=== PATIENT | male | born 1930 | race African-American/Black ===

== ENCOUNTER 2017-02-23 18:32 | Inpatient (IN) | payer OTHER ==
--- NOTE | 2017-02-23 18:54 | PDOC ---
History of Present Illness - General Chief Complaint: CVA/TIA Stated Complaint: RULE OUT STROKE Time Seen by Provider: 02/23/17 18:53 - History of Present Illness Initial Comments: 02/23/17 19:29 Mr. Aguilera is an 86 yo male with a significant past medical history of prior stroke and atherosclerosis who presents to the emergency department following an episode of slurred speech and non-responsiveness at approximately 6pm tonight. Upon arriving to the ER by ambulance he had regained his normal speech patterns and was fully conversant. The patient denies chest pain, shortness of breath, headache and dizziness. Denies fever, chills, nausea, vomit, diarrhea and constipation. Denies dysuria, frequency, urgency and hematuria. Allergies: NKDA Past surgical history: Denies tPA Exclusion Checklist 0-3hr - Time Elapsed Date last known well: 02/23/17 Time last known well: 18:00 Elaspsed time: 1 Day(s) and 2 Hour(s) and 3 Minutes - Thrombolytic Therapy Candidate Is the patient eligible for Thrombolytic Therapy?: No - Exclusion Criteria 0-3hr SBP greater than 185 or DBP greater than 110mmHg despite tx: No Recent IC/spinal surgery,head trauma or stroke w/in last 3mo: No Hx of previous IC hemorrhage, IC neoplasm, AVM or aneurysm: No Active internal bleeding: No Blding diathesis(low plt ct, inc PTT,INR>1.7 or use of NOAC): No Symptoms suggest subarachnoid hemorrhage: No CT demonstrates multilobar infarct(>1/3 cerebral hemiphere): No Arterial puncture at noncompressible site in previous 7 days: No Blood glucose concentration less than 50mg/dL (2.7mmol/L): No - Relative Exclusion Criteria 0-3h Life expectancy <1yr/severe co-morbid illness/FIRST FRONT VENTILATOR on admit: No : No Patient/family refused: No Rapid improvement: Yes Stroke severity too mild: No Recent acute [place] (w/in previous 3 months): No Seizure at onset with postictal residual neuro impairments: No Major surgery or serious trauma w/in previous 14 days: No Recent GI or hemorrhage (w/in previous 21 days): No - Ineligibility reason(s) Reasons No tPA given: See reason(s) noted above NIH Stroke Scale - Initial Evaluation Level of consciousness: Alert Ask patient the month and their age: Answers both correctly Ask patient to open & close eyes; make fist and let go: Obeys both correctly Best gaze (horizontal eye movement): Normal Visual field testing: No visual field loss Facial paresis (Show teeth/raise eyebrows/close eyes tight): Normal symmetrical movement Motor Function: Left Arm: Normal Motor Function: Right Arm: Normal (extends arm 90 (or 45) degrees for 10 seconds without drift Motor Function: Left Leg: Normal (extends leg 30 degrees for 5 seconds without drift) Motor Function: Right Leg: Normal (extends leg 30 degrees for 5 seconds without drift) Limb Ataxia: No ataxia Sensory(Use pinprick test arms,legs,trunk,face/side to side): Normal Best language (Describe picture, name items, read sentences): No Aphasia Dysarthria (read several words): Mild to moderate slurring of words (Baseline after last stroke) Extinction and Inattention: No abnormality - Total Score NIH Stroke Scale Score: 1 Past History - Past Medical History Allergies/Adverse Reactions: Allergies Allergy/AdvReac Type Severity Reaction Status Date / Time No Known Allergies Allergy Verified 02/24/17 00:51 Home Medications: Ambulatory Orders Amlodipine Besylate [Norvasc -] 10 mg PO DAILY 02/24/17 Aspirin [Aspirin EC] 81 mg PO DAILY 02/24/17 Atorvastatin Ca [Lipitor] 40 mg PO HS 02/24/17 Metoprolol Tartrate [Lopressor -] 25 mg PO BID 02/24/17 Review of Systems - Review of Systems Comments:: 02/23/17 19:29 GENERAL/CONSTITUTIONAL: No fever or chills. No weakness. HEAD, EYES, EARS, NOSE AND THROAT: No change in vision. No ear pain or discharge. No sore throat. CARDIOVASCULAR: No chest pain or shortness of breath RESPIRATORY: No cough, wheezing, or hemoptysis. GASTROINTESTINAL: No nausea, vomiting, diarrhea or constipation. GENITOURINARY: No dysuria, frequency, or change in urination. MUSCULOSKELETAL: No joint or muscle swelling or pain. No neck or back pain. SKIN: No rash NEUROLOGIC: As reported in HPI. No other neurologic complaints. ENDOCRINE: No increased thirst. No abnormal weight change HEMATOLOGIC/LYMPHATIC: No anemia, easy bleeding, or history of blood clots. ALLERGIC/IMMUNOLOGIC: No hives or skin allergy. *Physical Exam - Physical Exam Comments: 02/23/17 19:30 GENERAL: Awake, alert, and fully oriented, in no acute distress HEAD: No signs of trauma, normocephalic, atraumatic EYES: PERRLA, EOMI, sclera anicteric, conjunctiva clear ENT: Auricles normal inspection, hearing grossly normal, nares patent, oropharynx clear without exudates. Moist mucosa NECK: Normal ROM, supple, no lymphadenopathy, JVD, or masses LUNGS: No distress, speaks full sentences, clear to auscultation bilaterally HEART: Regular rate and rhythm, normal S1 and S2, no murmurs, rubs or gallops, peripheral pulses normal and equal bilaterally. ABDOMEN: Soft, nontender, normoactive bowel sounds. No guarding, no rebound. No masses EXTREMITIES: Normal inspection, Normal range of motion, no edema. No clubbing or cyanosis. NEUROLOGICAL: +Minor slurring of speech, reported as patient normal post prior stroke per family. Cranial nerves II through XII grossly intact. Normal gait, no focal sensorimotor deficits SKIN: Warm, Dry, normal turgor, no rashes or lesions noted. ED Treatment Course - LABORATORY CBC & Chemistry Diagram: 02/23/17 21:58 02/23/17 21:58 Medical Decision Making - Medical Decision Making 02/23/17 23:20 Patient at baseline by the time he presented via EMS. CT read as subacute process observed, no acute bleed. TPA not given as patient rapidly improved after episode. Patient will be admitted for observation and neurology will be consulted for evaluation. *DC/Admit/Observation/Transfer Diagnosis at time of Disposition: TIA (transient ischemic attack) Qualifiers: Transient cerebral ischemia type: unspecified Qualified Code(s): G45.9 - Transient cerebral ischemic attack, unspecified - Discharge Dispostion Admit: Yes
--- NOTE | 2017-02-23 19:51 | PDOC ---
Attending Attestation - HPI HPI: 02/23/17 20:11 86 yr old male, pmhx of a CVA (4yrs ago), who presents to the emergency room complaining of slurred speech and unresponsiveness that began at 6:00pm. The patients family called an ambulance, however, upon arrival to the emergency room the patient returned to his usual self as per family. The patient does not have any complaints at this time. Family notes that the patient had a carotid US on 02/21/[address] Jameson and found that he had an arterial blockage. Denies chest pain, SOB. Denies fever, chills, nausea, vomiting. Allergies: NKDA PCP: Dr. Godoy <Renay Mcduffie - Last Filed: 02/23/17 20:13> - Resident Resident Name: Sigifredo Garcia - ED Attending Attestation I have performed the following: I have examined & evaluated the patient, The case was reviewed & discussed with the resident, I agree w/resident's findings & plan, Exceptions are as noted - HPI HPI: 02/23/17 19:51 - Physicial Exam PE: 02/23/17 20:00 *Physical Exam General Appearance: Yes: Appropriately Dressed. No: Apparent Distress, Intoxicated HEENT: positive: EOMI, JOEY, Normal ENT Inspection, Normal Voice, TMs Normal, Pharynx Normal. negative: Pale Conjunctivae, Photophobia, Scleral Icterus (R), Scleral Icterus (L) Neck: positive: Trachea midline, Normal Thyroid, Supple. negative: Tender, Rigid, Carotid bruit, Stridor, Lymphadenopathy (R), Lymphadenopathy (L), Thyromegaly Respiratory/Chest: positive: Lungs Clear, Normal Breath Sounds. negative: Chest Tender, Respiratory Distress, Accessory Muscle Use, Labored Respiration, RES, Crackles, Rales, Rhonchi, Stridor, Wheezing, Dullness Cardiovascular: positive: Regular Rhythm, Regular Rate, S1, S2. negative: Edema , JVD, Murmur, Bradycardia, Tachycardia Vascular Pulses: Dorsalis-Pedis (R): 2+, Doralis-Pedis (L): 2+ Gastrointestinal/Abdominal: positive: Normal Bowel Sounds, Flat, Soft. negative : Tender, Organomegaly, Pulsatile Mass, Increased Bowel Sounds, Decreased BS, Distended, Guarding, Rebound, Hernia, Hepatomegaly, Spleenomegaly Lymphatic: negative: Adenopathy, Tenderness Musculoskeletal: positive: Normal Inspection. negative: CVA Tenderness, Decreased Range of Motion Extremity: positive: Normal Capillary Refill, Normal Inspection, Normal Range of Motion, Pelvis Stable. negative: Tender, Pedal Edema, Swelling, Erythema Integumentary: positive: Normal Color, Dry, Warm. negative: Cyanotic, Erythema , Jaundice, Rash Neurologic: positive: scrap metal collector II-XII NML intact, Fully Oriented, Alert, Normal Mood/ Affect, Motor Strength 5/5. negative: EOM Palsy, Facial Droop, Sensory Deficit 02/23/17 20:01 - Medical Decision Making 02/24/17 19:15 Pt admitted for TIA. <Rainer Avery - Last Filed: 02/24/17 19:20>
[2017-02-23] MEDS ORDERED: SODIUM CHLORIDE 1,000 ML IV STA (19:57)
[2017-02-23 22:28] LABS: BASOPHIL 0.5 % (0-2.0); EOSINOPHIL 1.4 % (0-4.5); MCH 29.9 pg (25.7-33.7); MEAN CELL VOLUME 90.4 fl (80-96); MEAN PLT VOLUME 9.2 fl (7.5-11.1); NEUTROPHILS 47.9 % (42.8-82.8); PLATELET COUNT 151 K/MM3 (134-434); RDW 14.9 % (11.9-15.9); WHITE BLOOD COUNT 4.4 K/mm3 (4.0-10.0)
[2017-02-23 22:49] LABS: INR 1.07 (0.82-1.09); PROTHROMBIN TIME (PATIENT) 12.1 SEC (9.98-11.88)
[2017-02-23 22:52] LABS: ALBUMIN 3.6 g/dl (3.4-5.0); ALK PHOS 82 U/L (45-117); ANION GAP 7 (8-16); BILIRUBIN,TOTAL 0.3 mg/dL (0.2-1.0); CALCIUM 8.5 mg/dL (8.5-10.1); CO2 27 mmol/L (21-32); CREATININE 0.7 mg/dL (0.7-1.3); GLUCOSE,RANDOM 103 mg/dL (74-106); SGOT/AST 14 U/L (15-37); SGPT/ALT 21 U/L (12-78)
[2017-02-24] MEDS ORDERED: ACETAMINOPHEN 325 MG TABLET (FP) PO PRN (00:30)
[2017-02-24] MEDS: METOPROLOL SUCCINATE 50 MG TAB.SR.24H (FP) PO SCH (10:19)
[2017-02-24] MEDS: ASPIRIN COATED 81 MG TABLET.EC PO SCH (10:19)
--- NOTE | 2017-02-24 11:38 | HP ---
Admitting History and Physical - Primary Care Physician PCP: Carolyn Godoy - Admission Chief Complaint: CVA History of Present Illness: Mr. Aguilera is an 86 yo male with a significant past medical history of prior stroke and atherosclerosis who presents to the emergency department following an episode of slurred speech and non-responsiveness at approximately 6pm tonight. Upon arriving to the ER by ambulance he had regained his normal speech patterns and was fully conversant. The patient denies chest pain, shortness of breath, headache and dizziness. Denies fever, chills, nausea, vomit, diarrhea and constipation. Denies dysuria, frequency, urgency and hematuria. History Source: Patient, Medical Record Limitations to Obtaining History: Dementia, Poor Historian - Past Medical History COUNSELING SERVICES DIRECTOR: Yes: CVA - Smoking History Smoking history: Never smoked Have you smoked in the past 12 months: No - Alcohol/Substance Use Hx Alcohol Use: No Home Medications - Allergies Allergies/Adverse Reactions: Allergies Allergy/AdvReac Type Severity Reaction Status Date / Time No Known Allergies Allergy Verified 02/24/17 00:51 - Home Medications Home Medications: Ambulatory Orders Amlodipine Besylate [Norvasc -] 10 mg PO DAILY 02/24/17 Aspirin [Aspirin EC] 81 mg PO DAILY 02/24/17 Atorvastatin Ca [Lipitor] 40 mg PO HS 02/24/17 Metoprolol Tartrate [Lopressor -] 25 mg PO BID 02/24/17 Review of Systems - Review of Systems Constitutional: reports: No Symptoms Eyes: reports: No Symptoms HENT: reports: No Symptoms Neck: reports: No Symptoms Cardiovascular: reports: No Symptoms Respiratory: reports: No Symptoms Gastrointestinal: reports: No Symptoms Genitourinary: reports: No Symptoms Musculoskeletal: reports: No Symptoms Integumentary: reports: No Symptoms Neurological: reports: No Symptoms Endocrine: reports: No Symptoms Hematology/Lymphatic: reports: No Symptoms Psychiatric: reports: No Symptoms Physical Examination Vital Signs: Vital Signs Temperature 97.5 F L 02/24/17 10:00 Pulse Rate 54 L 02/24/17 10:00 Respiratory Rate 02/24/17 10:00 Blood Pressure 161/67 02/24/17 10:00 O2 Sat by Pulse Oximetry (%) 98 02/24/17 06:31 Constitutional: Yes: Mild Distress Eyes: Yes: WNL HENT: Yes: WNL Neck: Yes: WNL Cardiovascular: Yes: WNL Respiratory: Yes: WNL Gastrointestinal: Yes: WNL Renal/: Yes: WNL Musculoskeletal: Yes: Muscle Weakness Extremities: Yes: WNL Edema: Yes Edema: LLE: 1+, RLE: 1+ Peripheral Pulses WNL: Yes Integumentary: Yes: WNL Wound/Incision: Yes: Clean/Dry Neurological: Yes: Pre-Existing Deficit, Unsteady Gait ...Motor Strength: LLE, RLE Psychiatric: Yes: WNL Imaging - Results Cat Scan: Report Reviewed Problem List - Problems (1) TIA (transient ischemic attack) Code(s): G45.9 - TRANSIENT CEREBRAL ISCHEMIC ATTACK, UNSPECIFIED Qualifiers: Transient cerebral ischemia type: unspecified Qualified Code(s): G45.9 - Transient cerebral ischemic attack, unspecified; G45.9 - Transient cerebral ischemic attack, unspecified; G45.9 - Transient cerebral ischemic attack, unspecified (2) CVA, old, cognitive deficits Code(s): I69.319 - UNSP SYMPTOMS AND SIGNS W COGN FNCTNS FOL CEREBRAL INFRC (3) Hypertension Code(s): I10 - ESSENTIAL (PRIMARY) HYPERTENSION (4) Lipidemia Code(s): E78.5 - HYPERLIPIDEMIA, UNSPECIFIED (5) Unsteady gait Code(s): R26.81 - UNSTEADINESS ON FEET Assessment/Plan OLD CVA LIPID PANEL CAROTID STENOSIS VASC SX EVAL NEURO EVAL OOB TO CHAIR BP CONTROL STATIN ASA
--- NOTE | 2017-02-24 11:55 | EKG ---
Test Reason : Blood Pressure : / mmHG Vent. Rate : 058 BPM Atrial Rate : 058 BPM P-R Int : 158 ms QRS Dur : 082 ms QT Int : 446 ms P-R-T Axes : 065 053 036 degrees QTc Int : 437 ms SINUS BRADYCARDIA WITH PREMATURE ATRIAL COMPLEXES WITH ABERRANT CONDUCTION MINIMAL VOLTAGE CRITERIA FOR LVH, MAY BE NORMAL VARIANT BORDERLINE ECG NO PREVIOUS ECGS AVAILABLE Confirmed by ELLI GARAY, MELLISA ([id number]) on 02/24/2017 11:54:31 AM Referred By: Confirmed By:MELLISA CALLOWAY MD
--- NOTE | 2017-02-24 14:38 | CON.CARD ---
Consult Consult Specialty:: Cardiology Referred by:: odilia Reason for Consultation:: cva - History of Present Illness Chief Complaint: slurred speech History of Present Illness: 86 year old male with a pmhx of htn and carotid atherosclerosis who presents with slurred speech. Patient was home when daughter noticed episode of slurred speech. Symptoms resolved shortly after. No chest pain, dyspnea, or palpitations. No pnd or orthopnea. No edema. No syncope. - History Source History Provided By: Patient, Medical Record - Past Medical History EXECUTIVE DIRECTOR CONTRACT SHOP: Yes: CVA - Alcohol/Substance Use Hx Alcohol Use: No - Smoking History Smoking history: Never smoked Have you smoked in the past 12 months: No Home Medications - Allergies Allergies/Adverse Reactions: Allergies Allergy/AdvReac Type Severity Reaction Status Date / Time No Known Allergies Allergy Verified 02/24/17 00:51 - Home Medications Home Medications: Ambulatory Orders Amlodipine Besylate [Norvasc -] 10 mg PO DAILY 02/24/17 Aspirin [Aspirin EC] 81 mg PO DAILY 02/24/17 Atorvastatin Ca [Lipitor] 40 mg PO HS 02/24/17 Metoprolol Tartrate [Lopressor -] 25 mg PO BID 02/24/17 Vital Signs: Vital Signs Temperature 97.5 F L 02/24/17 10:00 Pulse Rate 54 L 02/24/17 10:00 Respiratory Rate 17 02/24/17 10:00 Blood Pressure 161/67 02/24/17 10:00 O2 Sat by Pulse Oximetry (%) 98 02/24/17 08:29 Constitutional: Yes: No Distress Neck: Yes: Supple Respiratory: Yes: CTA Bilaterally Gastrointestinal: Yes: Normal Bowel Sounds, Soft Cardiovascular: Yes: Regular Rate and Rhythm JVD: No Carotid Bruit: Yes Heart Sounds: Yes: S1, S2 Murmur: No: Systolic Murmur Edema: No - Other Data Labs, Other Data: INR, PTT INR 1.07 (0.82-1.09) 02/23/17 21:58 Imaging - Results Chest X-ray: Report Reviewed X-ray: Report Reviewed Cat Scan: Report Reviewed EKG: Image Reviewed Problem List - Problems (1) CVA, old, cognitive deficits Code(s): I69.319 - UNSP SYMPTOMS AND SIGNS W COGN FNCTNS FOL CEREBRAL INFRC (2) Hypertension Code(s): I10 - ESSENTIAL (PRIMARY) HYPERTENSION Assessment/Plan 86 year old male with a pmhx of htn and carotid atherosclerosis who presents with slurred speech. EKG: sinus rhythm at 58bpm, pac, lvh, no acute st changes 1) CVA/TIA -CT head with subacute/acute infarct Vascular surgery to see given known severe carotid stenosis Aspirin/statin/bp control -admitted to tele Echocardiogram 2) HTN Restarted metoprolol Monitor bp and restart amlodipine if needed
[2017-02-24 15:25] VITALS: BMI 22.7
[2017-02-24] MEDS ORDERED: FLU VACCINE QUAD 60 MCG/0.5 ML (MDV 17-18) IM ONE (17:00)
--- NOTE | 2017-02-24 18:39 | CONSULT ---
Consult - Past Medical History INTELLIGENCE SPECIALIST: Yes: CVA - Alcohol/Substance Use Hx Alcohol Use: No - Smoking History Smoking history: Never smoked Have you smoked in the past 12 months: No Home Medications - Allergies Allergies/Adverse Reactions: Allergies Allergy/AdvReac Type Severity Reaction Status Date / Time No Known Allergies Allergy Verified 02/24/17 00:51 - Home Medications Home Medications: Ambulatory Orders Amlodipine Besylate [Norvasc -] 10 mg PO DAILY 02/24/17 Aspirin [Aspirin EC] 81 mg PO DAILY 02/24/17 Atorvastatin Ca [Lipitor] 40 mg PO HS 02/24/17 Metoprolol Tartrate [Lopressor -] 25 mg PO BID 02/24/17 Physical Exam Vital Signs: Vital Signs Temperature 98.2 F 02/24/17 13:45 Pulse Rate 59 L 02/24/17 13:45 Respiratory Rate 18 02/24/17 13:45 Blood Pressure 153/70 02/24/17 13:45 O2 Sat by Pulse Oximetry (%) 98 02/24/17 17:53 Assessment/Plan VAscular Surgery Mr. Aguilera is an 86 yo male with a significant past medical history of prior stroke and atherosclerosis who presents to the emergency department following an episode of slurred speech and non-responsiveness at approximately 6pm tonight. Upon arriving to the ER by ambulance he had regained his normal speech patterns and was fully conversant. The patient denies chest pain, shortness of breath, headache and dizziness. Denies fever, chills, nausea, vomit, diarrhea and constipation. Denies dysuria, frequency, urgency and hematuria. Allergies: NKDA Past surgical history: Denies 02/23/17 23:17 PE Head - NC/AT Lung - CTA Heart - RRR abd - soft,nt,nd ext - warm,pink. FROM x4 Good muscle strength No weaknesses. A/P CT shows old stroke from 4 years ago Recent CTA done shows string sign in the carotid on the right side. Pt will need cardiology workup and will need CEA vs carotid stent. The lesion is 1.5cm from the bulb. Might benefit from carotid stent due to location of stenosis. Will follow Tolu Jameson DO
[2017-02-24] MEDS: ATORVASTATIN CA 40 MG TABLET (FP) PO SCH ×2 (21:01→21:02)
--- NOTE | 2017-02-24 23:21 | CONSULT ---
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 Long h/o HTN, Cholesterol on amlodipine, atorvastatin, metoprolol and ASA. Said to be s/p CVA 4 years ago but was last seen by me as out patient on for stiffness in both legs and shuffling gait with signs of Parkinsonism. Followed by Dr. Jameson with known carotid disease recently defined on recent CTA (reviewed) revealing a critical Right and a moderate left ICA stenoses. Now admitted after a witnessed episode of speech arrest and decreased responsiveness which had normalized by arrival in the ED. CT of head (reviewed) shows moderate, diffuse, atrophy and a subacute-chronic Right frontal CVA. Patient cannot further describe the episode other than to confirm "I had a seizure." Denies prior episodes. ZUNILDA: No bruits. Cor: Reg NEURO: Awake, alert. Ox [facility], Feb, 2017, [place]. Recalls 2 of 3 at 3 mins. no frontal release findings. Fluent speech. Full felton. Full EOM's. no obvious facial. Tongue WANDA's are slowed but gag is normal. No drift or tremor. Decreased WANDA's B/L. Min Cogwheeling. Brisk reflexes. Downgoing toes. No FTN Dystaxia Normal sensation. Romberg neg. Gait: Stiff-legged. IMP: Mild B/L Motor signs Mild extrapyramidal features. 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 TIA, Vs focal seizure (possibly from the old stroke) Vs, Syncope SUGGEST: Determine from the family if LOC occurred since it creates an entirely different differential diagnosis. If LOC...Syncope vs seizure and patient needs telemetry, echo, orthostatics, EEG. If no LOC, TIA is much more likely (ie: focal cerebral ischemia should not cause LOC). MRI and MR Angio of the carotids (NB: Since a neurological event occurred, it is not hussein to assume the findings of the Sept CTA are still valid since the new event could involve the occlusion of the sub-critical R ICA stenosis making CEA or stenting now impossible). After endarectomy or stenting, antiplatelet Rx as per Dr. Jameson ( ie: would add clopidigrel to ASA). Neurology f/u as out patient. Thank you very much, Leroy Sheehan MD
[2017-02-25 07:27] LABS: MCH 29.8 pg (25.7-33.7); MCHC 32.8 g/dl (32.0-35.9); MEAN CELL VOLUME 90.7 fl (80-96); MEAN PLT VOLUME 9.4 fl (7.5-11.1); PLATELET COUNT 146 K/MM3 (134-434); RDW 14.8 % (11.9-15.9); WHITE BLOOD COUNT 3.7 K/mm3 (4.0-10.0)
[2017-02-25 08:02] LABS: ALBUMIN 3.3 g/dl (3.4-5.0); ALK PHOS 79 U/L (45-117); ANION GAP 8 (8-16); BILIRUBIN,TOTAL 0.4 mg/dL (0.2-1.0); CALCIUM 8.6 mg/dL (8.5-10.1); CHOLESTEROL 95 mg/dL (50-200); CO2 25 mmol/L (21-32); CREATININE 0.8 mg/dL (0.7-1.3); GLUCOSE,RANDOM 105 mg/dL (74-106); SGOT/AST 14 U/L (15-37); SGPT/ALT 19 U/L (12-78); TOT PROT 6.3 g/dl (6.4-8.2)
--- NOTE | 2017-02-25 08:54 | PN ---
Progress Note, Physician History of Present Illness: FEELS BETTER NO CP NO MOSHER - Current Medication List Current Medications: Active Medications Acetaminophen (Tylenol -) 650 mg PO Q6H PRN PRN Reason: FEVER OR PAIN Aspirin (Ecotrin -) 81 mg PO DAILY [facility] Last Admin: 02/24/17 10:19 Dose: 81 mg Atorvastatin Calcium (Lipitor -) 40 mg PO HS [facility] Last Admin: 02/24/17 21:02 Dose: 40 mg Metoprolol Succinate (Toprol Xl -) 50 mg PO DAILY [facility] Last Admin: 02/24/17 10:19 Dose: 50 mg - Objective Vital Signs: Vital Signs Temperature 98.1 F 02/25/17 05:21 Pulse Rate 54 L 02/25/17 05:21 Respiratory Rate 20 02/25/17 05:21 Blood Pressure 115/56 02/25/17 05:21 O2 Sat by Pulse Oximetry (%) 98 02/24/17 21:11 Cardiovascular: Yes: Regular Rate and Rhythm Respiratory: Yes: Regular, CTA Bilaterally Gastrointestinal: Yes: Normal Bowel Sounds, Soft. No: Tenderness Edema: No Labs: CBC, BMP 02/25/17 05:35 02/25/17 05:35 INR, PTT INR 1.07 (0.82-1.09) 02/23/17 21:58 Problem List - Problems (1) CVA, old, cognitive deficits Assessment/Plan: MRI RESULTS NOTED CONTINUE WITH MEDS Code(s): I69.319 - UNSP SYMPTOMS AND SIGNS W COGN FNCTNS FOL CEREBRAL INFRC (2) TIA (transient ischemic attack) Assessment/Plan: AWAIT MRA NEURO CONSULT NOTED Code(s): G45.9 - TRANSIENT CEREBRAL ISCHEMIC ATTACK, UNSPECIFIED Qualifiers: Transient cerebral ischemia type: unspecified Qualified Code(s): G45.9 - Transient cerebral ischemic attack, unspecified; G45.9 - Transient cerebral ischemic attack, unspecified; G45.9 - Transient cerebral ischemic attack, unspecified (3) Carotid stenosis Assessment/Plan: MRA MAY NEED SURGERY VS STENTING PREOP W/U--STRESS TEST Code(s): I65.29 - OCCLUSION AND STENOSIS OF UNSPECIFIED CAROTID ARTERY
[2017-02-25] MEDS: ASPIRIN COATED 81 MG TABLET.EC PO SCH ×2 (11:00→14:42)
[2017-02-25] MEDS: METOPROLOL SUCCINATE 50 MG TAB.SR.24H (FP) PO SCH ×2 (11:00→14:42)
--- NOTE | 2017-02-25 11:06 | PN ---
Progress Note, Physician Chief Complaint: No complaints S/p MRI History of Present Illness: 86 year old male with a pmhx of htn and carotid atherosclerosis who presents with slurred speech. Patient was home when daughter noticed episode of slurred speech. Symptoms resolved shortly after. No chest pain, dyspnea, or palpitations. No pnd or orthopnea. No edema. No syncope. - Current Medication List Current Medications: Active Medications Acetaminophen (Tylenol -) 650 mg PO Q6H PRN PRN Reason: FEVER OR PAIN Aspirin (Ecotrin -) 81 mg PO DAILY [facility] Last Admin: 02/24/17 10:19 Dose: 81 mg Atorvastatin Calcium (Lipitor -) 40 mg PO HS [facility] Last Admin: 02/24/17 21:02 Dose: 40 mg Metoprolol Succinate (Toprol Xl -) 50 mg PO DAILY [facility] Last Admin: 02/24/17 10:19 Dose: 50 mg - Objective Vital Signs: Vital Signs Temperature 98.1 F 02/25/17 05:21 Pulse Rate 54 L 02/25/17 05:21 Respiratory Rate 20 02/25/17 05:21 Blood Pressure 115/56 02/25/17 05:21 O2 Sat by Pulse Oximetry (%) 98 02/24/17 21:11 Constitutional: Yes: No Distress Cardiovascular: Yes: Regular Rate and Rhythm, S1, S2 Respiratory: Yes: CTA Bilaterally Gastrointestinal: Yes: Normal Bowel Sounds, Soft Edema: No Labs: CBC, BMP 02/25/17 05:35 02/25/17 05:35 INR, PTT INR 1.07 (0.82-1.09) 02/23/17 21:58 Problem List - Problems (1) CVA, old, cognitive deficits Code(s): I69.319 - UNSP SYMPTOMS AND SIGNS W COGN FNCTNS FOL CEREBRAL INFRC (2) Hypertension Code(s): I10 - ESSENTIAL (PRIMARY) HYPERTENSION Assessment/Plan 86 year old male with a pmhx of htn and carotid atherosclerosis who presents with slurred speech. EKG: sinus rhythm at 58bpm, pac, lvh, no acute st changes 1) CVA/TIA -MRI with old infarct Vascular surgery evaluated for carotid stenosis Aspirin/statin/bp control -If plan is for carotid endarterectomy than will need preop cardiac work up with Echocardiogram and Nuclear Stress Test. This can be done as inpatient or outpatient. 2) HTN On metoprolol Well controlled Please call me after results of cardiac work up.
[2017-02-25] MEDS ORDERED: DEXTROSE 5% IVPB ONE (12:00)
[2017-02-25] MEDS ORDERED: DIPYRIDAMOLE STRESS TEST IVPB ONE (12:00)
[2017-02-25] MEDS ORDERED: WATER IVPB ONE (12:00)
[2017-02-25] MEDS: ATORVASTATIN CA 40 MG TABLET (FP) PO SCH (21:11)
[2017-02-26] MEDS: ASPIRIN COATED 81 MG TABLET.EC PO SCH (09:43)
[2017-02-26] MEDS: METOPROLOL SUCCINATE 50 MG TAB.SR.24H (FP) PO SCH (09:43)
--- NOTE | 2017-02-26 13:13 | PN ---
Progress Note, Physician History of Present Illness: FEELS BETTER NO CP NO MOSHER - Current Medication List Current Medications: Active Medications Acetaminophen (Tylenol -) 650 mg PO Q6H PRN PRN Reason: FEVER OR PAIN Aspirin (Ecotrin -) 81 mg PO DAILY [facility] Last Admin: 02/26/17 09:43 Dose: 81 mg Atorvastatin Calcium (Lipitor -) 40 mg PO HS [facility] Last Admin: 02/25/17 21:11 Dose: 40 mg Metoprolol Succinate (Toprol Xl -) 50 mg PO DAILY [facility] Last Admin: 02/26/17 09:43 Dose: 50 mg - Objective Vital Signs: Vital Signs Temperature 97.7 F 02/26/17 05:00 Pulse Rate 57 L 02/26/17 05:00 Respiratory Rate 20 02/26/17 05:00 Blood Pressure 150/77 02/26/17 05:00 O2 Sat by Pulse Oximetry (%) 100 02/25/17 21:00 Cardiovascular: Yes: Regular Rate and Rhythm Respiratory: Yes: Regular, CTA Bilaterally Gastrointestinal: Yes: Normal Bowel Sounds, Soft Labs: CBC, BMP 02/25/17 05:35 02/25/17 05:35 INR, PTT INR 1.07 (0.82-1.09) 02/23/17 21:58 Problem List - Problems (1) CVA, old, cognitive deficits Assessment/Plan: MRI RESULTS NOTED---OLD CVA CONTINUE WITH MEDS Code(s): I69.319 - UNSP SYMPTOMS AND SIGNS W COGN FNCTNS FOL CEREBRAL INFRC (2) TIA (transient ischemic attack) Assessment/Plan: AWAIT MRA NEURO CONSULT NOTED Code(s): G45.9 - TRANSIENT CEREBRAL ISCHEMIC ATTACK, UNSPECIFIED Qualifiers: Transient cerebral ischemia type: unspecified Qualified Code(s): G45.9 - Transient cerebral ischemic attack, unspecified; G45.9 - Transient cerebral ischemic attack, unspecified; G45.9 - Transient cerebral ischemic attack, unspecified (3) Carotid stenosis Assessment/Plan: MRA MAY NEED SURGERY VS STENTING PREOP W/U--STRESS TEST NEGATIVE VASCULAR F/U Code(s): I65.29 - OCCLUSION AND STENOSIS OF UNSPECIFIED CAROTID ARTERY
--- NOTE | 2017-02-26 15:42 | PN ---
Progress Note (short form) - Note Progress Note: Vascular Surgery Pt's CTA and MRA reviewed. Right ICA on cta shows string sign 1cm from bifurcation. left ICA is prob 90% on images. Pt has old infarct on MRI. 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 Pt will need to be shunted for procedure. Can opt to send pt to tertiary care center. Will speak to medical team Tolu saenz DO
[2017-02-26] MEDS: ATORVASTATIN CA 40 MG TABLET (FP) PO SCH (21:25)
--- NOTE | 2017-02-27 09:29 | PN ---
Progress Note, Physician History of Present Illness: FEELS BETTER NO CP NO MOSHER - Current Medication List Current Medications: Active Medications Acetaminophen (Tylenol -) 650 mg PO Q6H PRN PRN Reason: FEVER OR PAIN Aspirin (Ecotrin -) 81 mg PO DAILY [facility] Last Admin: 02/26/17 09:43 Dose: 81 mg Atorvastatin Calcium (Lipitor -) 40 mg PO HS [facility] Last Admin: 02/26/17 21:25 Dose: 40 mg Metoprolol Succinate (Toprol Xl -) 50 mg PO DAILY [facility] Last Admin: 02/26/17 09:43 Dose: 50 mg - Objective Vital Signs: Vital Signs Temperature 97.9 F 02/27/17 06:00 Pulse Rate 63 02/27/17 06:00 Respiratory Rate 20 02/27/17 06:00 Blood Pressure 107/54 02/27/17 06:00 O2 Sat by Pulse Oximetry (%) 97 02/27/17 02:00 Neck: Yes: Supple Cardiovascular: Yes: Regular Rate and Rhythm Respiratory: Yes: Regular, CTA Bilaterally Labs: CBC, BMP 02/25/17 05:35 02/25/17 05:35 INR, PTT INR 1.07 (0.82-1.09) 02/23/17 21:58 Problem List - Problems (1) CVA, old, cognitive deficits Assessment/Plan: MRI RESULTS NOTED---OLD CVA CONTINUE WITH MEDS Code(s): I69.319 - UNSP SYMPTOMS AND SIGNS W COGN FNCTNS FOL CEREBRAL INFRC (2) TIA (transient ischemic attack) Assessment/Plan: AWAIT MRA NEURO CONSULT NOTED Code(s): G45.9 - TRANSIENT CEREBRAL ISCHEMIC ATTACK, UNSPECIFIED Qualifiers: Transient cerebral ischemia type: unspecified Qualified Code(s): G45.9 - Transient cerebral ischemic attack, unspecified; G45.9 - Transient cerebral ischemic attack, unspecified; G45.9 - Transient cerebral ischemic attack, unspecified (3) Carotid stenosis Assessment/Plan: MRA MAY NEED SURGERY VS STENTING PREOP W/U--STRESS TEST NEGATIVE VASCULAR F/U NOTED--TO DISCUSS Code(s): I65.29 - OCCLUSION AND STENOSIS OF UNSPECIFIED CAROTID ARTERY
[2017-02-27] MEDS: ASPIRIN COATED 81 MG TABLET.EC PO SCH (09:35)
[2017-02-27] MEDS: METOPROLOL SUCCINATE 50 MG TAB.SR.24H (FP) PO SCH (09:35)
[2017-02-27] MEDS: POLYETHYLENE GLYCOL 3350 119 GM BTL PO SCH (10:07)
[2017-02-27] MEDS: ATORVASTATIN CA 40 MG TABLET (FP) PO SCH (21:15)
[2017-02-28] MEDS: ASPIRIN COATED 81 MG TABLET.EC PO SCH (09:44)
[2017-02-28] MEDS: POLYETHYLENE GLYCOL 3350 119 GM BTL PO SCH (09:44)
[2017-02-28] MEDS: METOPROLOL SUCCINATE 50 MG TAB.SR.24H (FP) PO SCH (09:44)
--- NOTE | 2017-02-28 13:59 | PN ---
Progress Note, Physician Chief Complaint: no complaints History of Present Illness: 86 year old male with a pmhx of htn and carotid atherosclerosis who presents with slurred speech. Patient was home when daughter noticed episode of slurred speech. Symptoms resolved shortly after. No chest pain, dyspnea, or palpitations. No pnd or orthopnea. No edema. No syncope. Stress test normal by report. - Current Medication List Current Medications: Active Medications Acetaminophen (Tylenol -) 650 mg PO Q6H PRN PRN Reason: FEVER OR PAIN Aspirin (Ecotrin -) 81 mg PO DAILY [facility] Last Admin: 02/28/17 09:44 Dose: 81 mg Atorvastatin Calcium (Lipitor -) 40 mg PO HS [facility] Last Admin: 02/27/17 21:15 Dose: 40 mg Metoprolol Succinate (Toprol Xl -) 50 mg PO DAILY [facility] Last Admin: 02/28/17 09:44 Dose: 50 mg Polyethylene Glycol (Miralax (For Daily Use) -) 17 gm PO DAILY [facility] Last Admin: 02/28/17 09:44 Dose: 17 mg - Objective Vital Signs: Vital Signs Temperature 98.2 F 02/28/17 10:00 Pulse Rate 63 02/28/17 10:00 Respiratory Rate 18 02/28/17 10:00 Blood Pressure 131/69 02/28/17 10:00 O2 Sat by Pulse Oximetry (%) 96 02/28/17 10:00 Constitutional: Yes: Well Nourished, No Distress Eyes: Yes: Conjunctiva Clear, EOM Intact HENT: Yes: Atraumatic, Normocephalic Neck: Yes: Supple, Trachea Midline Cardiovascular: Yes: Regular Rate and Rhythm Respiratory: Yes: Regular, CTA Bilaterally Gastrointestinal: Yes: Normal Bowel Sounds, Soft Extremities: Yes: WNL Edema: No Peripheral Pulses WNL: No Peripheral Pulses: Left Radial: 4+, Right Radial: 4+, Left Doralis Pedis: 2+, Right Dorsalis Pedis: 2+, Left Femoral: 2+, Right Femoral: 2+ Labs: INR, PTT INR 1.07 (0.82-1.09) 02/23/17 21:58 Problem List - Problems (1) Carotid stenosis Assessment/Plan: He has severe carotid stenosis. plan is to transfer to [facility] Vascular Service Dr Doss to accept. Please provide MRI/A disc. cardiac status is stable for surgery. Code(s): I65.29 - OCCLUSION AND STENOSIS OF UNSPECIFIED CAROTID ARTERY Qualifiers: Laterality: bilateral Qualified Code(s): I65.23 - Occlusion and stenosis of bilateral carotid arteries; I65.23 - Occlusion and stenosis of bilateral carotid arteries; I65.23 - Occlusion and stenosis of bilateral carotid arteries
--- NOTE | 2017-02-28 15:18 | PN ---
Progress Note (short form) - Note Progress Note: VAscular Surgery Pt to be transfered to vascular surgery service at [facility]. Will be available to speak to surgeon if necessary. Tolu Jameson DO
--- NOTE | 2017-02-28 16:47 | DS ---
Physical Examination Vital Signs: Vital Signs Temperature 98.1 F 02/28/17 14:00 Pulse Rate 61 02/28/17 14:00 Respiratory Rate 18 02/28/17 14:00 Blood Pressure 143/68 02/28/17 14:00 O2 Sat by Pulse Oximetry (%) 96 02/28/17 10:00 Constitutional: Yes: Mild Distress Eyes: Yes: WNL HENT: Yes: WNL Neck: Yes: WNL Cardiovascular: Yes: WNL Respiratory: Yes: WNL Gastrointestinal: Yes: WNL Musculoskeletal: Yes: WNL Extremities: Yes: WNL Edema: No Peripheral Pulses WNL: Yes Integumentary: Yes: WNL Wound/Incision: Yes: Clean/Dry Neurological: Yes: Pre-Existing Deficit, Unsteady Gait ...Motor Strength: LLE, RLE Psychiatric: Yes: Other (DEMENTIA) Discharge Summary Reason For Visit: TCI Current Active Problems CVA, old, cognitive deficits (Acute) Carotid stenosis (Acute) Hypertension (Acute) Lipidemia (Acute) TIA (transient ischemic attack) (Acute) Unsteady gait (Acute) DEMENTIA Procedures: Principal: MRI/MRA Hospital Course: SEVERE CAROTID STENOSIS NEEDING TRANSFER TO [facility] FOR POSSIBLE HIGH RISK SURGERY Condition: Guarded - Instructions Diet, Activity, Other Instructions: LOW FAT/LOW SALT Referrals: Carolyn Godoy MD [Primary Care Provider] - Disposition: TRANSFER ACUTE CARE/OTHER HOSP - Home Medications Comprehensive Discharge Medication List: Ambulatory Orders Amlodipine Besylate [Norvasc -] 10 mg PO DAILY 02/24/17 Aspirin [Aspirin EC] 81 mg PO DAILY 02/24/17 Atorvastatin Ca [Lipitor] 40 mg PO HS 02/24/17 Metoprolol Tartrate [Lopressor -] 25 mg PO BID 02/24/17 Acetaminophen [Tylenol .Regular Strength -] 650 mg PO Q6H PRN #0 tablet Aspirin Coated [Ecotrin -] 81 mg PO DAILY tab 02/28/17 Atorvastatin Ca [Lipitor] 40 mg PO HS tablet 02/28/17 Metoprolol Succinate [Toprol XL -] 50 mg PO DAILY tab 02/28/17 Polyethylene Glycol 3350 [Miralax 119 gm Btl -] 17 gm PO DAILY bottle 02/28/17
[2017-02-28] MEDS: ATORVASTATIN CA 40 MG TABLET (FP) PO SCH (22:43)
[2017-03-01] MEDS: ASPIRIN COATED 81 MG TABLET.EC PO SCH (10:24)
[2017-03-01] MEDS: METOPROLOL SUCCINATE 50 MG TAB.SR.24H (FP) PO SCH (10:24)
[2017-03-01] MEDS: POLYETHYLENE GLYCOL 3350 119 GM BTL PO SCH (10:30)
--- NOTE | 2017-03-01 14:21 | PN ---
Progress Note, Physician Chief Complaint: no complaints History of Present Illness: 86 year old male with a pmhx of htn and carotid atherosclerosis who presents with slurred speech. Patient was home when daughter noticed episode of slurred speech. Symptoms resolved shortly after. No chest pain, dyspnea, or palpitations. No pnd or orthopnea. No edema. No syncope. Stress test normal by report. - Current Medication List Current Medications: Active Medications Acetaminophen (Tylenol -) 650 mg PO Q6H PRN PRN Reason: FEVER OR PAIN Aspirin (Ecotrin -) 81 mg PO DAILY [facility] Last Admin: 03/01/17 10:24 Dose: 81 mg Atorvastatin Calcium (Lipitor -) 40 mg PO HS [facility] Last Admin: 02/28/17 22:43 Dose: 40 mg Metoprolol Succinate (Toprol Xl -) 50 mg PO DAILY [facility] Last Admin: 03/01/17 10:24 Dose: 50 mg Polyethylene Glycol (Miralax (For Daily Use) -) 17 gm PO DAILY [facility] Last Admin: 03/01/17 10:30 Dose: Not Given - Objective Vital Signs: Vital Signs Temperature 98.4 F 03/01/17 06:00 Pulse Rate 58 L 03/01/17 06:00 Respiratory Rate 16 03/01/17 06:00 Blood Pressure 119/65 03/01/17 06:00 O2 Sat by Pulse Oximetry (%) 96 02/28/17 21:00 Constitutional: Yes: No Distress Eyes: Yes: Conjunctiva Clear, EOM Intact HENT: Yes: Atraumatic, Normocephalic Neck: Yes: Trachea Midline Cardiovascular: Yes: Regular Rate and Rhythm Respiratory: Yes: CTA Bilaterally Gastrointestinal: Yes: Normal Bowel Sounds, Soft Musculoskeletal: Yes: WNL Extremities: Yes: WNL Edema: No Labs: INR, PTT INR 1.07 (0.82-1.09) 02/23/17 21:58 Problem List - Problems (1) Carotid stenosis Assessment/Plan: He has severe carotid stenosis. plan is to transfer to [facility] Vascular Service Dr Doss to accept. Please provide MRI/A disc. cardiac status is stable for surgery. Code(s): I65.29 - OCCLUSION AND STENOSIS OF UNSPECIFIED CAROTID ARTERY Qualifiers: Laterality: bilateral Qualified Code(s): I65.23 - Occlusion and stenosis of bilateral carotid arteries; I65.23 - Occlusion and stenosis of bilateral carotid arteries; I65.23 - Occlusion and stenosis of bilateral carotid arteries
[2017-03-01 15:11] VITALS: BP 121/73; PULSE 60; TEMP 98
== END 2017-03-01 18:29 | disposition short-term general hospital (02) | DRG 68 ==
LOC: JER 18:32 → JERBED 23:24 → UNDOADMOB 23:54 → JERBED 23:54 → J4S 02-24 13:57 → OBSVTOIN 02-28 06:28
PROVIDERS: ADMIT Family Medicine; ATTEND Family Medicine
DX: I65.23 Occlusion and stenosis of bilateral carotid arteries (principal); G45.9 Transient cerebral ischemic attack, unspecified; I10 Essential (primary) hypertension; F03.90 Unspecified dementia, unspecified severity, without behavioral disturbance, psychotic disturbance, mood disturbance, and anxiety; R26.81 Unsteadiness on feet; E78.5 Hyperlipidemia, unspecified
CPT/HCPCS: 36415; 70450-TC; 70547-TC; 70551-TC; 71010-TC; 78452-TC; 80053; 80061; 83036; 83721; 85025; 85027; 85610; 90688; 93005; 93010; 93017; 97116-GP; 97161-GP; 99285-25; A9502; G0008; G0378

== ENCOUNTER 2020-07-03 11:38 | Inpatient (IN) | payer BC, OTHER ==
[2020-07-03] MEDS ORDERED: SODIUM CHLORIDE 0.9% 500 ML INFUS.BAG IV ONE (12:45)
[2020-07-03 13:45] LABS: BASO % 0.3 % (0-2.0); HEMATOCRIT 34.8 % (35.4-49); HEMOGLOBIN 11.5 GM/dL (11.7-16.9); LYMPH % 31.7 % (8-40); MEAN CELL VOLUME 87.8 fl (80-96); MEAN PLT VOLUME 9.6 fl (7.5-11.1); MONO % 6.4 % (3.8-10.2); NEUT % 61.6 % (42.8-82.8); PLATELET COUNT 152 K/MM3 (134-434); RBC 3.97 M/mm3 (4.00-5.60); RDW 15.7 % (11.9-15.9); WHITE BLOOD COUNT 3.8 K/mm3 (4.0-10.0)
[2020-07-03 13:51] LABS: INR 1.14 (0.83-1.09)
[2020-07-03 13:55] LABS: ACTIVATED PTT 26.9 SECONDS (25.2-36.5)
[2020-07-03 14:07] LABS: CHLORIDE 100 mmol/L (98-107); POTASSIUM 4.5 mmol/L (3.5-5.1); SODIUM 135 mmol/L (136-145)
[2020-07-03 14:09] LABS: CALCIUM 8.7 mg/dL (8.5-10.1)
[2020-07-03 14:10] LABS: ALBUMIN 3.4 g/dl (3.4-5.0); ANION GAP 6 MMOL/L (8-16); BLOOD UREA NITROGEN 34.9 mg/dL (7-18); CO2 29 mmol/L (21-32); GLUCOSE,RANDOM 100 mg/dL (74-106)
[2020-07-03 14:13] LABS: CREATININE 1.3 mg/dL (0.55-1.3); SGOT/AST 52 U/L (15-37); SGPT/ALT 28 U/L (13-61)
[2020-07-03 14:15] LABS: BILIRUBIN,TOTAL 0.5 mg/dL (0.2-1); TOT PROT 7.4 g/dl (6.4-8.2)
[2020-07-03 14:16] LABS: ALK PHOS 57 U/L (45-117)
[2020-07-03 14:18] LABS: LDH 378 U/L (87-246)
[2020-07-03] MEDS ORDERED: LACTATED RINGERS SOLUTION 1,000 ML IV SCH ×2 (16:15)
[2020-07-03] MEDS: LACTATED RINGERS SOLUTION 1,000 ML IV SCH (16:43)
[2020-07-03] MEDS ORDERED: HEPARIN NA (PORCINE) 5,000 UNITS/ML 1ML VIAL ONE (18:16)
[2020-07-03] MEDS: HEPARIN NA (PORCINE) 5,000 UNITS/ML 1ML VIAL SQ SCH ×2 (18:22→22:52)
[2020-07-03 19:13] LABS: EPI CELLS 12 /uL (0-25.1); HYALINE CASTS 7 /uL (0-3.1); URINE APPEARANCE CLEAR; URINE BACTERIA 15 /uL (0-1359); URINE BILIRUBIN NEGATIVE (NEGATIVE); URINE COLOR YELLOW; URINE GLUCOSE (UA) NEGATIVE (NEGATIVE); URINE KETONE 1+ (NEGATIVE); URINE LEUK ESTERASE NEGATIVE (NEGATIVE); URINE NITRITE NEGATIVE (NEGATIVE); URINE PROTEIN 1+ (NEGATIVE); URINE RBC 10 /uL (0-23.9); URINE UROBILINOGEN 0.2 mg/dL (0.2-1.0); URINE WBC 8 /uL (0-25.8)
[2020-07-03] MEDS ORDERED: ACETAMINOPHEN 500 MG TABLET (FP) PO PRN (19:56)
[2020-07-03] MEDS ORDERED: PATIENT'S OWN MEDICATION (NON-FORMULARY) (Brimonidine Tartrate/Timolol [Combigan 0.2%-0.5% OP SCH (22:00)
[2020-07-03] MEDS ORDERED: ASCORBIC ACID 250 MG TABLET (FP) PO SCH (22:00)
[2020-07-03] MEDS ORDERED: ZINC SULFATE 220 MG CAPSULE (FP) PO SCH (22:00)
[2020-07-03] MEDS: ATORVASTATIN CA 40 MG TABLET (FP) PO SCH (22:52)
[2020-07-03] MEDS: TIMOLOL 0.5% OPHTHALMIC SOL 5 ML BOTTLE OU SCH (22:58)
[2020-07-03] MEDS: BRIMONIDINE TARTRATE 0.2% OPHTHALMIC 5 ML BOTTLE OU SCH (22:59)
[2020-07-04] MEDS ORDERED: DEXAMETHASONE SOD PHOSPHATE 4 MG/1 ML VIAL IVPUSH ONE (04:49)
[2020-07-04] MEDS: HEPARIN NA (PORCINE) 5,000 UNITS/ML 1ML VIAL SQ SCH ×3 (05:28→22:07)
[2020-07-04 09:08] LABS: BASO % 0.8 % (0-2.0); HEMATOCRIT 30.4 % (35.4-49); HEMOGLOBIN 10.2 GM/dL (11.7-16.9); LYMPH % 28.9 % (8-40); MCH 29.1 pg (25.7-33.7); MCHC 33.4 g/dl (32.0-35.9); MEAN CELL VOLUME 87.2 fl (80-96); MEAN PLT VOLUME 9.5 fl (7.5-11.1); MONO % 3.4 % (3.8-10.2); NEUT % 66.9 % (42.8-82.8); PLATELET COUNT 144 K/MM3 (134-434); RBC 3.48 M/mm3 (4.00-5.60); RDW 15.5 % (11.9-15.9); WHITE BLOOD COUNT 4.2 K/mm3 (4.0-10.0)
[2020-07-04 09:29] LABS: POTASSIUM 4.4 mmol/L (3.5-5.1)
[2020-07-04 09:31] LABS: ALBUMIN 2.8 g/dl (3.4-5.0); BLOOD UREA NITROGEN 25.1 mg/dL (7-18); CALCIUM 8.4 mg/dL (8.5-10.1)
[2020-07-04 09:32] LABS: MAGNESIUM 2.2 mg/dL (1.8-2.4)
[2020-07-04 09:35] LABS: PHOSPHOROUS 3.6 mg/dL (2.5-4.9)
[2020-07-04 09:36] LABS: BILIRUBIN,TOTAL 0.7 mg/dL (0.2-1); TOT PROT 6.2 g/dl (6.4-8.2)
[2020-07-04] MEDS ORDERED: CHOLECALCIFEROL (VIT D3) 1,000 UNIT (25 MCG) TABLET PO SCH (10:00)
[2020-07-04] MEDS ORDERED: ASCORBIC ACID 500 MG TABLET (FP) PO SCH (10:00)
[2020-07-04] MEDS ORDERED: ZINC SULFATE 220 MG CAPSULE (FP) PO SCH (10:00)
[2020-07-04] MEDS: CHOLECALCIFEROL (VIT D3) 1,000 UNIT (25 MCG) TABLET PO SCH (10:03)
[2020-07-04] MEDS: LACTATED RINGERS SOLUTION 1,000 ML IV SCH ×2 (10:04→17:32)
[2020-07-04] MEDS: ASPIRIN COATED 81 MG TABLET.EC PO SCH (10:05)
[2020-07-04] MEDS: CLOPIDOGREL BISULFATE 75 MG TABLET (FP) PO SCH (10:05)
[2020-07-04] MEDS: TAMSULOSIN HCL 0.4 MG CAP PO SCH (10:10)
[2020-07-04] MEDS: DEXAMETHASONE SOD PHOSPHATE 4 MG/1 ML VIAL IVPUSH SCH (10:11)
[2020-07-04] MEDS: FAMOTIDINE 20 MG TABLET PO SCH ×2 (10:11→22:07)
[2020-07-04] MEDS ORDERED: REMDESIVIR 200 MG in SODIUM CHLORIDE 210 ML IVPB ONE (14:00)
[2020-07-04] MEDS: BRIMONIDINE TARTRATE 0.2% OPHTHALMIC 5 ML BOTTLE OU SCH (22:05)
[2020-07-04] MEDS: TIMOLOL 0.5% OPHTHALMIC SOL 5 ML BOTTLE OU SCH (22:06)
[2020-07-04] MEDS: ATORVASTATIN CA 40 MG TABLET (FP) PO SCH (22:07)
[2020-07-05] MEDS: HEPARIN NA (PORCINE) 5,000 UNITS/ML 1ML VIAL SQ SCH ×3 (06:13→22:50)
[2020-07-05] MEDS ORDERED: PT OWN MED DRAWER 7, Y5N ONE (06:59)
[2020-07-05 08:25] LABS: BASO % 0.3 % (0-2.0); HEMATOCRIT 30.9 % (35.4-49); HEMOGLOBIN 10.5 GM/dL (11.7-16.9); LYMPH % 23.6 % (8-40); MCH 29.2 pg (25.7-33.7); MCHC 33.8 g/dl (32.0-35.9); MEAN CELL VOLUME 86.4 fl (80-96); MEAN PLT VOLUME 9.6 fl (7.5-11.1); MONO % 7.1 % (3.8-10.2); PLATELET COUNT 135 K/MM3 (134-434); RBC 3.58 M/mm3 (4.00-5.60); RDW 15.6 % (11.9-15.9); WHITE BLOOD COUNT 4.6 K/mm3 (4.0-10.0)
[2020-07-05] MEDS: TAMSULOSIN HCL 0.4 MG CAP PO SCH (10:09)
[2020-07-05] MEDS: CHOLECALCIFEROL (VIT D3) 1,000 UNIT (25 MCG) TABLET PO SCH (10:09)
[2020-07-05] MEDS: FAMOTIDINE 20 MG TABLET PO SCH ×2 (10:09→22:49)
[2020-07-05] MEDS: CLOPIDOGREL BISULFATE 75 MG TABLET (FP) PO SCH (10:09)
[2020-07-05] MEDS: ASPIRIN COATED 81 MG TABLET.EC PO SCH (10:09)
[2020-07-05] MEDS: TIMOLOL 0.5% OPHTHALMIC SOL 5 ML BOTTLE OU SCH ×2 (10:10→22:50)
[2020-07-05] MEDS: DEXAMETHASONE SOD PHOSPHATE 4 MG/1 ML VIAL IVPUSH SCH (10:10)
[2020-07-05] MEDS: BRIMONIDINE TARTRATE 0.2% OPHTHALMIC 5 ML BOTTLE OU SCH ×2 (10:10→22:50)
[2020-07-05 10:15] LABS: ALBUMIN 2.7 g/dl (3.4-5.0); CALCIUM 8.6 mg/dL (8.5-10.1); MAGNESIUM 2.2 mg/dL (1.8-2.4); POTASSIUM 4.4 mmol/L (3.5-5.1)
[2020-07-05 10:18] LABS: BILIRUBIN,TOTAL 0.8 mg/dL (0.2-1); BLOOD UREA NITROGEN 26.5 mg/dL (7-18); CREATININE 0.9 mg/dL (0.55-1.3); PHOSPHOROUS 3.3 mg/dL (2.5-4.9); TOT PROT 6.2 g/dl (6.4-8.2)
[2020-07-05] MEDS: REMDESIVIR 100 MG in SODIUM CHLORIDE 230 ML IVPB SCH (15:31)
[2020-07-05] MEDS: POLYETHYLENE GLYCOL 3350 119 GM BTL PO PRN (18:32)
[2020-07-05 21:16] VITALS: BMI 22.1
[2020-07-05] MEDS: ATORVASTATIN CA 40 MG TABLET (FP) PO SCH (22:49)
[2020-07-06] MEDS: HEPARIN NA (PORCINE) 5,000 UNITS/ML 1ML VIAL SQ SCH ×3 (05:49→22:07)
[2020-07-06] MEDS: DEXAMETHASONE SOD PHOSPHATE 4 MG/1 ML VIAL IVPUSH SCH (09:27)
[2020-07-06] MEDS: TAMSULOSIN HCL 0.4 MG CAP PO SCH (09:29)
[2020-07-06] MEDS: CLOPIDOGREL BISULFATE 75 MG TABLET (FP) PO SCH (09:30)
[2020-07-06] MEDS: FAMOTIDINE 20 MG TABLET PO SCH ×2 (09:30→22:07)
[2020-07-06] MEDS: CHOLECALCIFEROL (VIT D3) 1,000 UNIT (25 MCG) TABLET PO SCH (09:30)
[2020-07-06] MEDS: ASPIRIN COATED 81 MG TABLET.EC PO SCH (09:31)
[2020-07-06 10:12] LABS: BASO % 0.6 % (0-2.0); HEMATOCRIT 32.1 % (35.4-49); HEMOGLOBIN 10.6 GM/dL (11.7-16.9); LYMPH % 22.3 % (8-40); MCH 28.9 pg (25.7-33.7); MCHC 33.2 g/dl (32.0-35.9); MEAN CELL VOLUME 87.2 fl (80-96); MEAN PLT VOLUME 10.1 fl (7.5-11.1); MONO % 5.7 % (3.8-10.2); NEUT % 71.4 % (42.8-82.8); PLATELET COUNT 162 K/MM3 (134-434); RBC 3.67 M/mm3 (4.00-5.60); RDW 15.3 % (11.9-15.9); WHITE BLOOD COUNT 5.1 K/mm3 (4.0-10.0)
[2020-07-06 10:53] LABS: ALBUMIN 2.8 g/dl (3.4-5.0); BILIRUBIN,TOTAL 0.4 mg/dL (0.2-1); BLOOD UREA NITROGEN 23.2 mg/dL (7-18); CALCIUM 8.8 mg/dL (8.5-10.1); CREATININE 0.9 mg/dL (0.55-1.3); MAGNESIUM 2.1 mg/dL (1.8-2.4); PHOSPHOROUS 2.8 mg/dL (2.5-4.9); TOT PROT 6.5 g/dl (6.4-8.2)
[2020-07-06] MEDS: BRIMONIDINE TARTRATE 0.2% OPHTHALMIC 5 ML BOTTLE OU SCH ×2 (12:29→22:07)
[2020-07-06] MEDS: TIMOLOL 0.5% OPHTHALMIC SOL 5 ML BOTTLE OU SCH ×2 (12:29→22:07)
[2020-07-06] MEDS: REMDESIVIR 100 MG in SODIUM CHLORIDE 230 ML IVPB SCH (14:47)
[2020-07-06] MEDS: POLYETHYLENE GLYCOL 3350 119 GM BTL PO PRN (14:49)
[2020-07-06] MEDS: ATORVASTATIN CA 40 MG TABLET (FP) PO SCH (22:07)
[2020-07-06] MEDS: SENNOSIDES 8.6MG TABLET (FP) PO SCH (22:07)
[2020-07-07] MEDS: HEPARIN NA (PORCINE) 5,000 UNITS/ML 1ML VIAL SQ SCH ×3 (06:33→22:05)
[2020-07-07] MEDS: TAMSULOSIN HCL 0.4 MG CAP PO SCH (10:13)
[2020-07-07] MEDS: CLOPIDOGREL BISULFATE 75 MG TABLET (FP) PO SCH (10:13)
[2020-07-07] MEDS: FAMOTIDINE 20 MG TABLET PO SCH ×2 (10:13→22:05)
[2020-07-07] MEDS: CHOLECALCIFEROL (VIT D3) 1,000 UNIT (25 MCG) TABLET PO SCH (10:13)
[2020-07-07] MEDS: ASPIRIN COATED 81 MG TABLET.EC PO SCH (10:14)
[2020-07-07] MEDS: TIMOLOL 0.5% OPHTHALMIC SOL 5 ML BOTTLE OU SCH ×2 (10:28→22:05)
[2020-07-07] MEDS: BRIMONIDINE TARTRATE 0.2% OPHTHALMIC 5 ML BOTTLE OU SCH ×2 (10:28→22:05)
[2020-07-07] MEDS: DEXAMETHASONE SOD PHOSPHATE 4 MG/1 ML VIAL IVPUSH SCH (10:32)
[2020-07-07] MEDS: REMDESIVIR 100 MG in SODIUM CHLORIDE 230 ML IVPB SCH (13:21)
[2020-07-07] MEDS: SENNOSIDES 8.6MG TABLET (FP) PO SCH (22:05)
[2020-07-07] MEDS: ATORVASTATIN CA 40 MG TABLET (FP) PO SCH (22:05)
[2020-07-08] MEDS: HEPARIN NA (PORCINE) 5,000 UNITS/ML 1ML VIAL SQ SCH ×3 (06:14→22:19)
[2020-07-08 08:55] LABS: BASO % 0.5 % (0-2.0); HEMATOCRIT 33.6 % (35.4-49); HEMOGLOBIN 11.3 GM/dL (11.7-16.9); LYMPH % 25.7 % (8-40); MCH 29.1 pg (25.7-33.7); MCHC 33.6 g/dl (32.0-35.9); MEAN CELL VOLUME 86.4 fl (80-96); MONO % 8.6 % (3.8-10.2); NEUT % 65.2 % (42.8-82.8); PLATELET COUNT 185 K/MM3 (134-434); RBC 3.89 M/mm3 (4.00-5.60); RDW 15.4 % (11.9-15.9); WHITE BLOOD COUNT 4.9 K/mm3 (4.0-10.0)
[2020-07-08] MEDS: CLOPIDOGREL BISULFATE 75 MG TABLET (FP) PO SCH (09:49)
[2020-07-08] MEDS: TAMSULOSIN HCL 0.4 MG CAP PO SCH (09:49)
[2020-07-08] MEDS: ASPIRIN COATED 81 MG TABLET.EC PO SCH (09:49)
[2020-07-08] MEDS: FAMOTIDINE 20 MG TABLET PO SCH ×2 (09:50→22:19)
[2020-07-08] MEDS: CHOLECALCIFEROL (VIT D3) 1,000 UNIT (25 MCG) TABLET PO SCH (09:50)
[2020-07-08 10:00] LABS: POTASSIUM 4.1 mmol/L (3.5-5.1)
[2020-07-08 10:01] LABS: MAGNESIUM 2.2 mg/dL (1.8-2.4)
[2020-07-08 10:02] LABS: ALBUMIN 2.9 g/dl (3.4-5.0)
[2020-07-08 10:03] LABS: CALCIUM 8.5 mg/dL (8.5-10.1)
[2020-07-08 10:04] LABS: CREATININE 0.8 mg/dL (0.55-1.3)
[2020-07-08 10:06] LABS: BILIRUBIN,TOTAL 0.4 mg/dL (0.2-1); PHOSPHOROUS 3.5 mg/dL (2.5-4.9); TOT PROT 6.6 g/dl (6.4-8.2)
[2020-07-08] MEDS: DEXAMETHASONE SOD PHOSPHATE 4 MG/1 ML VIAL IVPUSH SCH (10:21)
[2020-07-08] MEDS: TIMOLOL 0.5% OPHTHALMIC SOL 5 ML BOTTLE OU SCH ×2 (10:22→22:20)
[2020-07-08] MEDS: BRIMONIDINE TARTRATE 0.2% OPHTHALMIC 5 ML BOTTLE OU SCH ×2 (10:22→22:20)
[2020-07-08] MEDS: POLYETHYLENE GLYCOL 3350 119 GM BTL PO PRN (12:42)
[2020-07-08] MEDS: SENNOSIDES 8.6MG TABLET (FP) PO SCH (22:19)
[2020-07-08] MEDS: ATORVASTATIN CA 40 MG TABLET (FP) PO SCH (22:19)
[2020-07-09] MEDS: HEPARIN NA (PORCINE) 5,000 UNITS/ML 1ML VIAL SQ SCH ×3 (05:40→22:54)
[2020-07-09] MEDS: TAMSULOSIN HCL 0.4 MG CAP PO SCH (09:49)
[2020-07-09] MEDS: CLOPIDOGREL BISULFATE 75 MG TABLET (FP) PO SCH (09:49)
[2020-07-09] MEDS: DEXAMETHASONE SOD PHOSPHATE 4 MG/1 ML VIAL IVPUSH SCH (09:49)
[2020-07-09] MEDS: ASPIRIN COATED 81 MG TABLET.EC PO SCH (09:49)
[2020-07-09] MEDS: FAMOTIDINE 20 MG TABLET PO SCH ×2 (09:49→22:54)
[2020-07-09] MEDS: CHOLECALCIFEROL (VIT D3) 1,000 UNIT (25 MCG) TABLET PO SCH (09:50)
[2020-07-09] MEDS: TIMOLOL 0.5% OPHTHALMIC SOL 5 ML BOTTLE OU SCH ×2 (09:50→23:01)
[2020-07-09] MEDS: BRIMONIDINE TARTRATE 0.2% OPHTHALMIC 5 ML BOTTLE OU SCH ×2 (09:50→23:01)
[2020-07-09 11:49] LABS: HEMATOCRIT 35.7 % (35.4-49); HEMOGLOBIN 11.8 GM/dL (11.7-16.9); MCH 28.8 pg (25.7-33.7); MCHC 33.1 g/dl (32.0-35.9); MEAN CELL VOLUME 87.2 fl (80-96); MEAN PLT VOLUME 9.6 fl (7.5-11.1); PLATELET COUNT 190 K/MM3 (134-434); RBC 4.09 M/mm3 (4.00-5.60); RDW 15.7 % (11.9-15.9); WHITE BLOOD COUNT 6.3 K/mm3 (4.0-10.0)
[2020-07-09 12:48] LABS: BLOOD UREA NITROGEN 27.7 mg/dL (7-18); MAGNESIUM 2.4 mg/dL (1.8-2.4); PHOSPHOROUS 3.5 mg/dL (2.5-4.9); POTASSIUM 4.1 mmol/L (3.5-5.1)
[2020-07-09 14:59] LABS: ALBUMIN 3.1 g/dl (3.4-5.0)
[2020-07-09 15:01] LABS: BILIRUBIN,DIRECT 0.1 mg/dL (0.0-0.2)
[2020-07-09 15:03] LABS: BILIRUBIN,TOTAL 0.5 mg/dL (0.2-1); TOT PROT 7.1 g/dl (6.4-8.2)
[2020-07-09] MEDS: SENNOSIDES 8.6MG TABLET (FP) PO SCH (22:54)
[2020-07-09] MEDS: ATORVASTATIN CA 40 MG TABLET (FP) PO SCH (22:54)
[2020-07-10] MEDS: HEPARIN NA (PORCINE) 5,000 UNITS/ML 1ML VIAL SQ SCH ×2 (06:29→14:49)
[2020-07-10] MEDS: TAMSULOSIN HCL 0.4 MG CAP PO SCH (10:15)
[2020-07-10] MEDS: DEXAMETHASONE SOD PHOSPHATE 4 MG/1 ML VIAL IVPUSH SCH (10:15)
[2020-07-10] MEDS: ASPIRIN COATED 81 MG TABLET.EC PO SCH (10:16)
[2020-07-10] MEDS: CLOPIDOGREL BISULFATE 75 MG TABLET (FP) PO SCH (10:16)
[2020-07-10] MEDS: FAMOTIDINE 20 MG TABLET PO SCH ×2 (10:16→21:57)
[2020-07-10] MEDS: BRIMONIDINE TARTRATE 0.2% OPHTHALMIC 5 ML BOTTLE OU SCH ×2 (10:16→22:05)
[2020-07-10] MEDS: TIMOLOL 0.5% OPHTHALMIC SOL 5 ML BOTTLE OU SCH ×2 (10:16→22:05)
[2020-07-10] MEDS: CHOLECALCIFEROL (VIT D3) 1,000 UNIT (25 MCG) TABLET PO SCH (10:17)
[2020-07-10] MEDS: SENNOSIDES 8.6MG TABLET (FP) PO SCH (21:57)
[2020-07-10] MEDS: ATORVASTATIN CA 40 MG TABLET (FP) PO SCH (21:57)
[2020-07-11] MEDS ORDERED: INSULIN (LEVEMIR) 100 UNITS/ML UNITS SQ ONE (06:54)
[2020-07-11] MEDS ORDERED: INSULIN (NOVOLOG) ASPART 100 UNITS/ML 10ML VIAL ONE (06:55)
[2020-07-11] MEDS: TAMSULOSIN HCL 0.4 MG CAP PO SCH (08:11)
[2020-07-11] MEDS ORDERED: PT OWN MED DRAWER 7, Y5N ONE (10:35)
[2020-07-11] MEDS: CLOPIDOGREL BISULFATE 75 MG TABLET (FP) PO SCH (10:58)
[2020-07-11] MEDS: FAMOTIDINE 20 MG TABLET PO SCH ×2 (10:59→21:58)
[2020-07-11] MEDS: ASPIRIN COATED 81 MG TABLET.EC PO SCH (10:59)
[2020-07-11] MEDS: TIMOLOL 0.5% OPHTHALMIC SOL 5 ML BOTTLE OU SCH ×2 (10:59→21:58)
[2020-07-11] MEDS: BRIMONIDINE TARTRATE 0.2% OPHTHALMIC 5 ML BOTTLE OU SCH ×2 (10:59→21:57)
[2020-07-11] MEDS: CHOLECALCIFEROL (VIT D3) 1,000 UNIT (25 MCG) TABLET PO SCH (11:00)
[2020-07-11] MEDS: ATORVASTATIN CA 40 MG TABLET (FP) PO SCH (21:57)
[2020-07-11] MEDS: SENNOSIDES 8.6MG TABLET (FP) PO SCH (21:57)
[2020-07-12] MEDS ORDERED: INSULIN (LEVEMIR) 100 UNITS/ML UNITS SQ ONE (07:35)
[2020-07-12] MEDS ORDERED: INSULIN (NOVOLOG) ASPART 100 UNITS/ML 10ML VIAL ONE (07:36)
[2020-07-12] MEDS: TAMSULOSIN HCL 0.4 MG CAP PO SCH (09:05)
[2020-07-12] MEDS: ASPIRIN COATED 81 MG TABLET.EC PO SCH (09:08)
[2020-07-12] MEDS: FAMOTIDINE 20 MG TABLET PO SCH ×2 (09:09→21:24)
[2020-07-12] MEDS: CHOLECALCIFEROL (VIT D3) 1,000 UNIT (25 MCG) TABLET PO SCH (09:09)
[2020-07-12] MEDS: CLOPIDOGREL BISULFATE 75 MG TABLET (FP) PO SCH (09:09)
[2020-07-12] MEDS: BRIMONIDINE TARTRATE 0.2% OPHTHALMIC 5 ML BOTTLE OU SCH ×2 (09:24→21:24)
[2020-07-12] MEDS: TIMOLOL 0.5% OPHTHALMIC SOL 5 ML BOTTLE OU SCH ×2 (09:25→21:24)
[2020-07-12] MEDS: ATORVASTATIN CA 40 MG TABLET (FP) PO SCH (21:24)
[2020-07-12] MEDS: SENNOSIDES 8.6MG TABLET (FP) PO SCH (21:24)
[2020-07-13] MEDS: CLOPIDOGREL BISULFATE 75 MG TABLET (FP) PO SCH (09:05)
[2020-07-13] MEDS: TAMSULOSIN HCL 0.4 MG CAP PO SCH (09:05)
[2020-07-13] MEDS: FAMOTIDINE 20 MG TABLET PO SCH ×2 (09:05→21:22)
[2020-07-13] MEDS: ASPIRIN COATED 81 MG TABLET.EC PO SCH (09:08)
[2020-07-13] MEDS: BRIMONIDINE TARTRATE 0.2% OPHTHALMIC 5 ML BOTTLE OU SCH ×2 (09:08→21:21)
[2020-07-13] MEDS: CHOLECALCIFEROL (VIT D3) 1,000 UNIT (25 MCG) TABLET PO SCH (09:08)
[2020-07-13] MEDS: TIMOLOL 0.5% OPHTHALMIC SOL 5 ML BOTTLE OU SCH ×2 (09:09→21:22)
[2020-07-13] MEDS ORDERED: INSULIN (NOVOLOG) ASPART 100 UNITS/ML 10ML VIAL ONE (16:24)
[2020-07-13] MEDS: SENNOSIDES 8.6MG TABLET (FP) PO SCH (21:22)
[2020-07-13] MEDS: ATORVASTATIN CA 40 MG TABLET (FP) PO SCH (21:22)
[2020-07-14] MEDS: TAMSULOSIN HCL 0.4 MG CAP PO SCH (11:11)
[2020-07-14] MEDS: CLOPIDOGREL BISULFATE 75 MG TABLET (FP) PO SCH (11:11)
[2020-07-14] MEDS: ASPIRIN COATED 81 MG TABLET.EC PO SCH (11:12)
[2020-07-14] MEDS: CHOLECALCIFEROL (VIT D3) 1,000 UNIT (25 MCG) TABLET PO SCH (11:12)
[2020-07-14] MEDS: TIMOLOL 0.5% OPHTHALMIC SOL 5 ML BOTTLE OU SCH (11:15)
[2020-07-14] MEDS: FAMOTIDINE 20 MG TABLET PO SCH (11:15)
[2020-07-14] MEDS: BRIMONIDINE TARTRATE 0.2% OPHTHALMIC 5 ML BOTTLE OU SCH (11:15)
[2020-07-14 14:55] VITALS: BP 138/65; PULSE 67; TEMP 99.4
== END 2020-07-14 18:32 | disposition home or self-care (01) | DRG 178 ==
LOC: JER 11:38 → JERBED 13:26 → J6S 18:35
PROVIDERS: ADMIT Internal Medicine; ATTEND Internal Medicine
PROC: XW033E5 Introduction of Remdesivir Anti-infective into Peripheral Vein, Percutaneous Approach, New Technology Group 5 (ICD-10-PCS; principal; 2020-07-04)
DX: U07.1 COVID-19 (principal); N17.9 Acute kidney failure, unspecified; R64 Cachexia; I10 Essential (primary) hypertension; E78.5 Hyperlipidemia, unspecified; G31.84 Mild cognitive impairment of uncertain or unknown etiology; K59.09 Other constipation; I65.29 Occlusion and stenosis of unspecified carotid artery; N40.0 Benign prostatic hyperplasia without lower urinary tract symptoms; R62.7 Adult failure to thrive; Z68.22 Body mass index [BMI] 22.0-22.9, adult; Z86.73 Personal history of transient ischemic attack (TIA), and cerebral infarction without residual deficits
CPT/HCPCS: 36415; 71045-TC-FY; 80048; 80053; 80076; 81003; 82550; 82553; 82728; 82962; 83605; 83615; 83735; 84100; 84484; 85025; 85027; 85379; 85610; 85730; 86140; 86769; 87040; 87086; 87804; 93005; 93010; 94761; 97116-GP; 97161-GP; 99285-25; C9399; C9803; J1644; U0003

== ENCOUNTER 2021-05-09 21:33 | Inpatient (IN) | payer BC, OTHER ==
[2021-05-09] MEDS ORDERED: ACETAMINOPHEN 500 MG TABLET (FP) PO ONE (21:44)
[2021-05-09] MEDS ORDERED: SODIUM CHLORIDE 0.9% 500 ML INFUS.BAG IV ONE (23:03)
[2021-05-09 23:32] LABS: ALBUMIN 3.6 g/dl (3.4-5.0); BILIRUBIN,TOTAL 1.2 mg/dl (0.2-1); CALCIUM 9.7 mg/dl (8.5-10); CREATININE 1.5 mg/dl (0.55-1.3); TOT PROT 7.4 g/dl (6.4-8.2)
[2021-05-09 23:56] LABS: HEMOGLOBIN 10.2 GM/dL (11.7-16.9); MEAN PLT VOLUME 9.9 fl (7.5-11.1); RDW 15.4 % (11.9-15.9)
[2021-05-09 23:58] LABS: BASO % 0.6 % (0-2.0); HEMATOCRIT 30.4 % (35.4-49); LYMPH % 21.8 % (8-40); MCH 28.6 pg (25.7-33.7); MCHC 33.5 g/dl (32.0-35.9); MEAN CELL VOLUME 85.4 fl (80-96); MONO % 10.9 % (3.8-10.2); NEUT % 66.7 % (42.8-82.8); PLATELET COUNT 187 10^3/uL (134-434); RBC 3.56 M/mm3 (4.00-5.60); WHITE BLOOD COUNT 7.2 K/mm3 (4.0-10.0)
[2021-05-09 23:58] LABS: EPITHELIAL CELLS FEW /hpf
[2021-05-10 02:34] VITALS: BMI 20.9
[2021-05-10] MEDS ORDERED: ACETAMINOPHEN 325 MG TABLET (FP) PO PRN (05:00)
[2021-05-10 09:40] LABS: ALBUMIN 3.4 g/dl (3.4-5.0); BASO % 0.6 % (0-2.0); BILIRUBIN,TOTAL 1.4 mg/dl (0.2-1); CALCIUM 9.1 mg/dl (8.5-10); CREATININE 1.1 mg/dl (0.55-1.3); HEMOGLOBIN 9.6 GM/dL (11.7-16.9); LYMPH % 24.2 % (8-40); MCH 28.4 pg (25.7-33.7); MCHC 33.2 g/dl (32.0-35.9); MEAN CELL VOLUME 85.4 fl (80-96); MEAN PLT VOLUME 10.4 fl (7.5-11.1); MONO % 11.1 % (3.8-10.2); NEUT % 64.1 % (42.8-82.8); PLATELET COUNT 183 10^3/uL (134-434); RDW 15.2 % (11.9-15.9); TOT PROT 6.8 g/dl (6.4-8.2); WHITE BLOOD COUNT 6.4 K/mm3 (4.0-10.0)
[2021-05-10] MEDS ORDERED: PATIENT'S OWN MEDICATION (NON-FORMULARY) (Brimonidine Tartrate/Timolol [Combigan 0.2%-0.5% OD SCH (10:00)
[2021-05-10] MEDS ORDERED: PATIENT'S OWN MEDICATION (NON-FORMULARY) (Brimonidine Tartrate/Timolol [Combigan 0.2%-0.5% OP SCH (10:00)
[2021-05-10] MEDS ORDERED: TIMOLOL 0.5% OPHTHALMIC SOL 5 ML BOTTLE OD SCH (10:00)
[2021-05-10] MEDS ORDERED: BRIMONIDINE TARTRATE 0.2% OPHTHALMIC 5 ML BOTTLE OD SCH (10:00)
[2021-05-10] MEDS: SODIUM CHLORIDE 1,000 ML IV SCH (10:01)
[2021-05-10] MEDS: CHOLECALCIFEROL (VIT D3) 1,000 UNIT (25 MCG) TABLET PO SCH (10:01)
[2021-05-10] MEDS: TAMSULOSIN HCL 0.4 MG CAP PO SCH (10:01)
[2021-05-10] MEDS: POLYETHYLENE GLYCOL (HEALTHYLAX) 3350 17 GM PACKET PO SCH ×2 (10:12→21:18)
[2021-05-10] MEDS: SENNOSIDES 8.6MG TABLET (FP) PO SCH (21:18)
[2021-05-10] MEDS: ATORVASTATIN CA 40 MG TABLET (FP) PO SCH (21:18)
[2021-05-11] MEDS: TIMOLOL 0.5% OPHTHALMIC SOL 5 ML BOTTLE OU SCH ×3 (00:43→21:14)
[2021-05-11] MEDS: BRIMONIDINE TARTRATE 0.2% OPHTHALMIC 5 ML BOTTLE OU SCH ×3 (00:44→21:14)
[2021-05-11 08:35] LABS: ALBUMIN 3.3 g/dl (3.4-5.0); BILIRUBIN,TOTAL 0.9 mg/dl (0.2-1); CALCIUM 9.2 mg/dl (8.5-10); MAGNESIUM 1.8 mg/dL (1.8-2.4); PHOSPHOROUS 2.8 mg/dl (2.5-4.9); TOT PROT 6.5 g/dl (6.4-8.2)
[2021-05-11] MEDS: CHOLECALCIFEROL (VIT D3) 1,000 UNIT (25 MCG) TABLET PO SCH (09:41)
[2021-05-11] MEDS: TAMSULOSIN HCL 0.4 MG CAP PO SCH (09:41)
[2021-05-11] MEDS: POLYETHYLENE GLYCOL (HEALTHYLAX) 3350 17 GM PACKET PO SCH ×2 (09:46→21:14)
[2021-05-11] MEDS: SODIUM CHLORIDE 1,000 ML IV SCH (09:51)
[2021-05-11 11:30] LABS: BASO % 0.3 % (0-2.0); EOS % 0.3 % (0-4.5); HEMATOCRIT 28.4 % (35.4-49); HEMOGLOBIN 9.3 GM/dL (11.7-16.9); LYMPH % 29.9 % (8-40); MCH 28.2 pg (25.7-33.7); MCHC 32.7 g/dl (32.0-35.9); MEAN CELL VOLUME 86.1 fl (80-96); MEAN PLT VOLUME 10.1 fl (7.5-11.1); MONO % 10.5 % (3.8-10.2); PLATELET COUNT 178 10^3/uL (134-434); RDW 15.2 % (11.9-15.9)
[2021-05-11 11:31] LABS: WHITE BLOOD COUNT 7.9 K/mm3 (4.0-10.0)
[2021-05-11 12:15] LABS: PLATELET ESTIMATE NORMAL
[2021-05-11] MEDS ORDERED: SODIUM PHOSPHATE/NA BIPHOS 133 ML ENEMA RC ONE (12:24)
[2021-05-11] MEDS: ATORVASTATIN CA 40 MG TABLET (FP) PO SCH (21:14)
[2021-05-11] MEDS: SENNOSIDES 8.6MG TABLET (FP) PO SCH (21:14)
[2021-05-12 08:37] VITALS: BP 153/71; PULSE 78; TEMP 99.2
[2021-05-12] MEDS: TAMSULOSIN HCL 0.4 MG CAP PO SCH (09:30)
[2021-05-12] MEDS: CHOLECALCIFEROL (VIT D3) 1,000 UNIT (25 MCG) TABLET PO SCH (10:16)
[2021-05-12] MEDS: BRIMONIDINE TARTRATE 0.2% OPHTHALMIC 5 ML BOTTLE OU SCH (10:18)
[2021-05-12] MEDS: POLYETHYLENE GLYCOL (HEALTHYLAX) 3350 17 GM PACKET PO SCH (10:19)
[2021-05-12] MEDS: TIMOLOL 0.5% OPHTHALMIC SOL 5 ML BOTTLE OU SCH (10:19)
== END 2021-05-12 15:27 | disposition home health service (06) | DRG 694 ==
LOC: FER 21:33 → FM/S 23:58 → UNDOADMIN 05-10 01:19 → FM/S 05-10 01:19
PROVIDERS: ADMIT Family Medicine; ATTEND Family Medicine
DX: N13.30 Unspecified hydronephrosis (principal); N30.90 Cystitis, unspecified without hematuria; N17.9 Acute kidney failure, unspecified; C61 Malignant neoplasm of prostate; K59.00 Constipation, unspecified; E86.0 Dehydration; I10 Essential (primary) hypertension; E78.5 Hyperlipidemia, unspecified
CPT/HCPCS: 36415; 71046-TC-FY; 71101-TC-LT-FY; 74176-TC; 80053; 81003; 81015; 82550; 83605; 83735; 83930; 84100; 84484; 85025; 87040; 87086; 87804; 93005; 97116-GP; 97161-GP; 99285-25; C9803; U0003; U0005